=== PATIENT | female | born 1945 | race Caucasian/White ===

== ENCOUNTER 2020-08-26 09:42 | Day surgery (SDC) | payer MEDICARE, MEDICAID ==
[~2020-08-26] VITALS: Ht 160 cm; Wt 75.5 kg
[~2020-08-26 09:42] MED LIST: SODIUM CHLORIDE 0.9% 1,000 ML IV ONE
[2020-08-26] MEDS ORDERED: SODIUM CHLORIDE 0.9% 1,000 ML ONE (10:02)
[2020-08-26 11:42] LABS: PROTHROMBIN TIME 10.4 SEC (9.4-11.6)
[2020-08-26] MEDS ORDERED: IOHEXOL 300 MG/ML 150 ML VIAL ONE (11:49)
[2020-08-26] MEDS ORDERED: HEPARIN SODIUM 1000 UNITS/NS 1,000 ML ONE (11:49)
[2020-08-26] MEDS ORDERED: LIDOCAINE/PF 1% 30 ML VIAL ONE (11:49)
[2020-08-26] MEDS ORDERED: SODIUM BICARBONATE 50 MEQ/50 ML VIAL ONE (11:49)
[2020-08-26 12:26] VITALS: BP 152/82
[2020-08-26] MEDS ORDERED: MIDAZOLAM HCL 2 MG/2 ML VIAL ONE (12:29)
[2020-08-26] MEDS ORDERED: FentaNYL CITRATE-PF 100 MCG/2 ML VIAL ONE (12:29)
[2020-08-26] MEDS ORDERED: METOPROLOL TARTRATE 5 MG/5 ML VIAL ONE ×2 (13:00→13:02)
[2020-08-26] MEDS ORDERED: LIDOCAINE 1% 30 ML/SOD BICARB 8.4% 4 ML SQ ONE (13:00)
[2020-08-26] MEDS ORDERED: HEPARIN SODIUM 1000 UNITS/NS 1,000 ML IARTER ONE (13:00)
[2020-08-26] MEDS ORDERED: MIDAZOLAM HCL 2 MG/2 ML VIAL IVP ONE (13:00)
[2020-08-26] MEDS ORDERED: IOHEXOL 300 MG/ML 150 ML VIAL IARTER ONE (13:00)
[2020-08-26] MEDS ORDERED: FentaNYL CITRATE-PF 100 MCG/2 ML VIAL IVP ONE (13:00)
[2020-08-26 13:10] VITALS: BP 156/82
[2020-08-26] MEDS ORDERED: METOPROLOL TARTRATE 5 MG/5 ML VIAL IVP ONE ×2 (13:15)
[2020-08-26] MEDS ORDERED: AMIT75 PO (16:00)
[2020-08-26] MEDS ORDERED: ATOR20TA86 PO (16:00)
[2020-08-26] MEDS ORDERED: MELO-107 PO (16:00)
[2020-08-26] MEDS ORDERED: SACU1TAB PO (16:00)
[2020-08-26] MEDS ORDERED: ESCI20TA87 PO (16:00)
== END 2020-08-26 19:00 | disposition home or self-care (01) ==
LOC: CATHLAB 09:42 → EDSEX 10:30 → CATHLAB 19:00
PROVIDERS: ATTEND Internal Medicine Interventional Cardiology
DX: R94.39 Abnormal result of other cardiovascular function study (principal); I10 Essential (primary) hypertension; I42.9 Cardiomyopathy, unspecified; Z98.890 Other specified postprocedural states; E78.00 Pure hypercholesterolemia, unspecified; Z90.49 Acquired absence of other specified parts of digestive tract
CPT/HCPCS: 36415; 85610; 85730; 93458; 99152; J1644; J2250; J3010; J3490 ×3; J7030; Q9967